=== PATIENT | male | born 1980 | race Caucasian/White ===

== ENCOUNTER 2017-01-14 17:14 | Emergency (ER) | payer OTHER ==
[~2017-01-14] VITALS: Ht 185.4 cm; Wt 93.7 kg
[2017-01-14 17:23] VITALS: BP 143/77
[2017-01-14 18:56] LABS: HEP B SURF. AB 380.7 mIU/mL (0.0-10.0)
[2017-01-14 19:07] LABS: HIV 1&2 ANTIBODY SCREEN Nonreactive (Nonreactive); HIV-1 p24 ANTIGEN Nonreactive (Nonreactive)
[2017-01-14 19:32] LABS: HEPATITIS C VIRUS ANTIBODY Nonreactive (Nonreactive)
== END 2017-01-14 19:00 | disposition home or self-care (01) ==
LOC: ED 18:42
CPT/HCPCS: 36415; 86703; 86705; 86706; 86803; 87340; 87899; 99284; G0435